=== PATIENT | male | born 1955 | race Two or more races ===

== ENCOUNTER 2020-09-17 10:21 | Inpatient (IN) | payer MEDICAID, MEDICARE ==
[~2020-09-17] VITALS: Ht 175.3 cm; Wt 88.6 kg
[2020-09-17] MEDS ORDERED: ACETAMINOPHEN 325MG TABLET PO STA (10:56)
[2020-09-17] MEDS ORDERED: ASPIRIN 81MG TABLET PO ONE (11:00)
[2020-09-17 11:10] LABS: BASOPHILS % 0.6 % (0.0-2.0); HEMATOCRIT. 37.9 % (42.0-52.0); HEMOGLOBIN. 12.9 g/dL (14.0-18.0); LYMPHOCYTES % 16.7 % (20.0-50.0); MEAN CORPUSCULAR HEMOGLOBIN 32.7 pg (28.0-32.0); MEAN CORPUSCULAR VOLUME 96.1 fL (80.0-94.0); MEAN PLATELET VOLUME 7.5 fl (7.4-10.4); MONOCYTES % 5.8 % (2.0-8.0); NEUTROPHILS % 75.9 % (40.0-76.0); PLATELET 287 x1000/uL (130-400); RED BLOOD CELL COUNT 3.95 mill/uL (4.7-6.1); RED CELL DISTRIBUTION WIDTH 12.7 % (11.6-14.6)
[2020-09-17 11:16] LABS: CHLORIDE 106 mEq/L (98-107)
[2020-09-17] MEDS: NITROGLYCERIN 0.4MG TABLET SL SL PRN ×2 (11:20→19:44)
[2020-09-17] MEDS ORDERED: SODIUM CHLORIDE 0.9% 500 ML IV ONE ×2 (11:45→12:45)
[2020-09-17] MEDS ORDERED: FUROSEMIDE 20MG/2ML VIAL IVP ONE (12:00)
[2020-09-17] MEDS ORDERED: MORPHINE SULFATE 4 MG/ML CPJ (NOT FOR IM USE) IV ONE (12:30)
[2020-09-17 15:44] VITALS: BP 163/94
[2020-09-17 16:00] VITALS: BP 163/84
[2020-09-17 18:00] VITALS: BP 163/99
[2020-09-17] MEDS ORDERED: ACETAMINOPHEN 325MG TABLET PO PRN (18:15)
[2020-09-17] MEDS ORDERED: DEXTROSE 50% WATER 50ML SYRINGE IV PRN (18:15)
[2020-09-17] MEDS ORDERED: ONDANSETRON HCL 4MG/2ML INJ IV PRN (18:15)
[2020-09-17] MEDS: FUROSEMIDE 40MG/4ML VIAL IVP SCH (19:03)
[2020-09-17 19:06] LABS: METHADONE URINE SCREEN NEGATIVE (NEGATIVE); OPIATES URINE SCREEN NEGATIVE (NEGATIVE); PHENCYCLIDINE URINE SCREEN NEGATIVE (NEGATIVE)
[2020-09-17 19:07] LABS: *AMPHETAMINES SCREEN URINE NEGATIVE (NEGATIVE); *BARBITURATES SCREEN URINE NEGATIVE (NEGATIVE); *BENZODIAZEPINES SCREEN URINE NEGATIVE (NEGATIVE); *COCAINE SCREEN URINE NEGATIVE (NEGATIVE); CANNABINOID URINE SCREEN NEGATIVE (NEGATIVE)
[2020-09-17 20:00] VITALS: BP 154/92
[2020-09-17] MEDS ORDERED: METOPROLOL TARTRATE 50MG TABLET PO SCH (21:00)
[2020-09-17] MEDS: INSULIN LISPRO 100 UNITS/ML SUBCUT SCH (21:15)
[2020-09-17] MEDS: ENOXAPARIN 40MG/0.4ML SYR SUBCUT SCH (21:17)
[2020-09-17] MEDS: BLOOD SUGAR DIAGNOSTIC STRIP TEST SCH (21:17)
[2020-09-17 22:00] VITALS: BP 144/88
[2020-09-18] VITALS (19 sets, daily range): BP systolic 134–158; BP diastolic 84–98
[2020-09-18] MEDS: BLOOD SUGAR DIAGNOSTIC STRIP TEST SCH ×4 (06:26→21:00)
[2020-09-18 07:12] LABS: CHLORIDE 100 mEq/L (98-107)
[2020-09-18] MEDS: INSULIN LISPRO 100 UNITS/ML SUBCUT SCH ×4 (07:20→22:14)
[2020-09-18] MEDS: FUROSEMIDE 40MG/4ML VIAL IVP SCH (07:58)
[2020-09-18] MEDS: ASPIRIN 81MG TABLET PO SCH (09:00)
[2020-09-18] MEDS ORDERED: MIDAZOLAM HCL 5 MG/5 ML VIAL ONE (15:11)
[2020-09-18] MEDS ORDERED: FENTANYL CITRATE/PF 50MCG/ML 5ML VIAL ONE (15:11)
[2020-09-18] MEDS ORDERED: IODIXANOL 320MG/ML 100 ML BOTTLE IV ONE (15:12)
[2020-09-18] MEDS ORDERED: LIDOCAINE HCL 1% 20ML VIAL (Pyxis) INJ ONE (15:12)
[2020-09-18] MEDS ORDERED: NITROGLYCERIN 50MCG/ML 10ML VIAL (CATH LAB) IV ONE (16:00)
[2020-09-18] MEDS ORDERED: NICARDIPINE 100MCG/ML 10ML VIAL (CATH LAB) IV ONE (16:00)
[2020-09-18] MEDS ORDERED: HEPARIN SODIUM 1,000 UNIT/1ML VIAL IV ONE (16:00)
[2020-09-18] MEDS ORDERED: ATROPINE SULFATE 1MG/10ML SYR IV PRN (16:00)
[2020-09-18] MEDS ORDERED: ACETAMINOPHEN 325MG TABLET PO PRN ×2 (16:00→18:30)
[2020-09-18] MEDS ORDERED: NITROGLYCERIN 0.4MG TABLET SL SL PRN (18:30)
[2020-09-18] MEDS ORDERED: ALPRAZOLAM 0.25 MG TABLET PO PRN (18:30)
[2020-09-18] MEDS: INSULIN GLARGINE UD 100 UNITS/ML SYR SUBCUT SCH (22:15)
[2020-09-18] MEDS: ATORVASTATIN CALCIUM 40MG TABLET PO SCH (22:16)
[2020-09-18] MEDS: CARVEDILOL 6.25 MG TABLET PO SCH (22:17)
[2020-09-18] MEDS: SODIUM CHLORIDE 0.9% INJ 3ML FLUSH IVF SCH (22:18)
[2020-09-18] MEDS: ENOXAPARIN 40MG/0.4ML SYR SUBCUT SCH (23:22)
[2020-09-19] VITALS (15 sets, daily range): BP systolic 117–163; BP diastolic 75–92
[2020-09-19] MEDS: SODIUM CHLORIDE 0.9% INJ 3ML FLUSH IVF SCH ×2 (06:00→14:00)
[2020-09-19] MEDS: BLOOD SUGAR DIAGNOSTIC STRIP TEST SCH ×4 (06:22→20:22)
[2020-09-19] MEDS: INSULIN LISPRO 100 UNITS/ML SUBCUT SCH ×4 (06:22→20:32)
[2020-09-19] MEDS: ASPIRIN 81MG TABLET PO SCH (08:16)
[2020-09-19] MEDS: FUROSEMIDE 40MG/4ML VIAL IVP SCH (08:16)
[2020-09-19] MEDS: CARVEDILOL 6.25 MG TABLET PO SCH ×2 (08:17→20:38)
[2020-09-19] MEDS ORDERED: LISINOPRIL 5MG TABLET PO SCH (09:00)
[2020-09-19] MEDS: INSULIN GLARGINE UD 100 UNITS/ML SYR SUBCUT SCH (11:41)
[2020-09-19] MEDS: ALLOPURINOL 300 MG TABLET PO SCH (20:37)
[2020-09-19] MEDS: ATORVASTATIN CALCIUM 40MG TABLET PO SCH (20:37)
[2020-09-19] MEDS ORDERED: BISACODYL 10MG SUPP PR PRN (21:00)
[2020-09-19] MEDS ORDERED: DOCUSATE SODIUM 100MG CAPSULE PO SCH (21:00)
[2020-09-19] MEDS ORDERED: CHLORHEXIDINE GLUCONATE 4% EXTERNAL USE TOP SCH (21:00)
[2020-09-19] MEDS ORDERED: ASCORBIC ACID 500 MG TABLET PO SCH (21:00)
[2020-09-19] MEDS ORDERED: INSULIN GLARGINE UD 100 UNITS/ML SYR SUBCUT SCH (22:00)
[2020-09-20] VITALS (20 sets, daily range): BP systolic 107–150; BP diastolic 50–92
[2020-09-20] MEDS: SODIUM CHLORIDE 0.9% INJ 3ML FLUSH IVF SCH ×2 (00:08→14:00)
[2020-09-20] MEDS ORDERED: BLOOD SUGAR DIAGNOSTIC STRIP TEST NR (05:00)
[2020-09-20] MEDS ORDERED: CEFAZOLIN 2,000 MG in DEXT 5% WATER 100 ML IV ONE (05:00)
[2020-09-20] MEDS: ALLOPURINOL 300 MG TABLET PO SCH (05:23)
[2020-09-20] MEDS ORDERED: METHYLENE BLUE 50 MG/10 ML AMP IV ONE (05:45)
[2020-09-20] MEDS ORDERED: BACITRACIN 50,000 UNITS/VIAL ONE (05:46)
[2020-09-20] MEDS ORDERED: THROMBIN (BOVINE) 5000 UNITS/VIAL TOP ONE (05:46)
[2020-09-20] MEDS ORDERED: BACITRACIN 15GM TUBE TOP ONE (05:46)
[2020-09-20] MEDS ORDERED: HEPARIN 5000 UNITS/ML VIAL ONE (05:46)
[2020-09-20] MEDS ORDERED: PAPAVERINE HCL 30 MG/ML 2ML IV ONE (05:47)
[2020-09-20] MEDS ORDERED: DOPAMINE 400MG/250ML PREMIX 250 ML IV ONE (05:51)
[2020-09-20] MEDS ORDERED: HEPARIN 1000 UNITS/ML 10ML ONE ×2 (05:56→11:00)
[2020-09-20] MEDS ORDERED: NOREPINEPHRINE 8 MG in DEXT 5% WATER 242 ML IV SCH (06:00)
[2020-09-20] MEDS ORDERED: CEFAZOLIN 2,000 MG in DEXT 5% WATER 100 ML IV SCH (06:00)
[2020-09-20] MEDS ORDERED: DEL NIDO ELECTROLYTE-S(PH 7.4) 1,000 ML IV SCH ×2 (06:00)
[2020-09-20] MEDS ORDERED: PAPAVERINE HCL 180MG in SODIUM CHLORIDE 0.9% 24ML IV SCH (06:00)
[2020-09-20] MEDS ORDERED: NICARDIPINE 50 MG in NS 250 ML IV SCH (06:00)
[2020-09-20] MEDS ORDERED: INSULIN REGULAR (DRIP) 100 UNITS in SODIUM CHLORIDE 0.9% 99 ML IV SCH (06:00)
[2020-09-20] MEDS ORDERED: AMINOCAPROIC ACID 5,000 MG in SODIUM CHLORIDE 0.9% 230 ML IV SCH (06:00)
[2020-09-20] MEDS ORDERED: EPINEPHRINE 5 MG in DEXT 5% WATER 245 ML IV SCH (06:00)
[2020-09-20 06:22] LABS: BASOPHILS % 0.5 % (0.0-2.0); EOSINOPHILS % 2.2 % (0.0-5.0); HEMATOCRIT. 38.4 % (42.0-52.0); HEMOGLOBIN. 13.2 g/dL (14.0-18.0); LYMPHOCYTES % 20.2 % (20.0-50.0); MEAN CORPUSCULAR HEMOGLOBIN 32.9 pg (28.0-32.0); MEAN CORPUSCULAR VOLUME 95.4 fL (80.0-94.0); MEAN PLATELET VOLUME 7.9 fl (7.4-10.4); MONOCYTES % 10.3 % (2.0-8.0); NEUTROPHILS % 66.8 % (40.0-76.0); PLATELET 271 x1000/uL (130-400); RED BLOOD CELL COUNT 4.02 mill/uL (4.7-6.1); RED CELL DISTRIBUTION WIDTH 12.8 % (11.6-14.6)
[2020-09-20 06:26] LABS: CLARITY URINE CLEAR (CLEAR); COLOR URINE YELLOW (YELLOW); KETONES URINE NEGATIVE (NEGATIVE); LEUKOCYTE ESTERASE URINE NEGATIVE (NEGATIVE); NITRITE URINE NEGATIVE (NEGATIVE); OCCULT BLOOD URINE NEGATIVE (NEGATIVE); PH URINE 5.5 (4.5-8.0); PROTEIN URINE 2+ (NEGATIVE); SPECIFIC GRAVITY URINE 1.019 (1.005-1.030); UROBILINOGEN URINE 0.2 E.U./dL (0.2-1.0)
[2020-09-20 06:28] LABS: CHLORIDE 101 mEq/L (98-107)
[2020-09-20] MEDS ORDERED: ACETAMINOPHEN 500MG TABLET ONE (06:38)
[2020-09-20] MEDS ORDERED: DEXAMETHASONE 4MG/ML 1ML VIAL ONE (06:42)
[2020-09-20] MEDS ORDERED: ROCURONIUM BROMIDE 10MG/ML VIAL 5ML IV ONE ×2 (06:42→09:08)
[2020-09-20] MEDS ORDERED: PROPOFOL 200MG/20ML VIAL IV ONE (06:42)
[2020-09-20] MEDS ORDERED: MIDAZOLAM HCL 5 MG/ML VIAL ONE (06:55)
[2020-09-20] MEDS ORDERED: HYDROMORPHONE HCL/PF 2MG/ML (OR) ONE ×2 (06:55→08:26)
[2020-09-20] MEDS ORDERED: SKIN ADHESIVE 0.7 GM EA TOP ONE (07:39)
[2020-09-20] MEDS ORDERED: CEFAZOLIN SODIUM 1000MG/VIAL ONE (07:50)
[2020-09-20] MEDS ORDERED: POTASSIUM CHLORIDE 40MEQ/20ML INJ IV ONE ×2 (08:25→11:00)
[2020-09-20] MEDS ORDERED: CHLORHEXIDINE GLUCONATE 4% EXTERNAL USE TOP SCH (09:00)
[2020-09-20] MEDS ORDERED: SODIUM BICARBONATE 8.4% 1 MEQ/ML 50ML SYR IV ONE ×2 (09:33→11:00)
[2020-09-20] MEDS ORDERED: PROTAMINE SULFATE 10MG/ML VIAL 25ML IV ONE (10:56)
[2020-09-20] MEDS ORDERED: AMINOCAPROIC ACID 250 MG/ML 20ML VIAL ONE ×2 (10:57→11:00)
[2020-09-20] MEDS ORDERED: CALCIUM CHLORIDE 1GM/10ML SYR IV ONE ×2 (10:57→11:00)
[2020-09-20] MEDS ORDERED: MANNITOL 20% (20GM/100ML) BAG 500ML PREMIX IV ONE (11:00)
[2020-09-20] MEDS ORDERED: HEPARIN 10,000 UNITS/ML VIAL ONE (11:00)
[2020-09-20] MEDS ORDERED: ALBUMIN HUMAN 25GM/100ML (25%) IV ONE (11:00)
[2020-09-20] MEDS ORDERED: PHENYLEPHRINE HCL 10 MG/ML 1ML (IV VIAL) IV ONE (11:00)
[2020-09-20] MEDS ORDERED: LIDOCAINE HCL 2% 5ML SYRINGE IV ONE (11:00)
[2020-09-20] MEDS ORDERED: MAGNESIUM SULFATE 5GM/10ML VIAL IV ONE (11:00)
[2020-09-20 12:27] LABS: HEMOGLOBIN. 10.8 g/dL (14.0-18.0); MEAN CORPUSCULAR HEMOGLOBIN 32.8 pg (28.0-32.0); MEAN CORPUSCULAR VOLUME 93.9 fL (80.0-94.0); MEAN PLATELET VOLUME 7.6 fl (7.4-10.4); PLATELET 227 x1000/uL (130-400); RED CELL DISTRIBUTION WIDTH 12.7 % (11.6-14.6)
[2020-09-20 12:34] LABS: CHLORIDE 99 mEq/L (98-107)
[2020-09-20 12:40] LABS: PHOSPHORUS 1.2 mg/dL (2.5-4.9)
[2020-09-20 12:49] LABS: INR 1.2; PARTIAL THROMBOPLASTIN TIME 30.6 sec (23.4-31.0); PROTHROMBIN TIME 12.4 sec (9.6-11.0)
[2020-09-20] MEDS ORDERED: MAGNESIUM 2 G PREMIX 50 ML IV PRN (13:00)
[2020-09-20] MEDS ORDERED: DEXTROSE 50% WATER 50ML SYRINGE IV PRN ×2 (13:00)
[2020-09-20] MEDS: MAGNESIUM HYDROXIDE 400MG/5ML 30ML UDC PO SCH ×3 (13:00→21:00)
[2020-09-20] MEDS ORDERED: ALBUMIN HUMAN 12.5G/250ML (5%) IV PRN (13:00)
[2020-09-20] MEDS ORDERED: KCL 10MEQ/50ML PREMIX 150 ML IV PRN (13:00)
[2020-09-20] MEDS ORDERED: KCL 10MEQ/50ML PREMIX 200 ML IV PRN (13:00)
[2020-09-20] MEDS ORDERED: MAGNESIUM SULFATE 3 GM in DEXT 5% WATER 100 ML IV PRN (13:00)
[2020-09-20] MEDS ORDERED: DOPAMINE 400MG/250ML PREMIX 250 ML IV PRN (13:00)
[2020-09-20] MEDS ORDERED: ACETAMINOPHEN 325MG TABLET PO PRN (13:00)
[2020-09-20] MEDS ORDERED: CEFAZOLIN 1000MG PREMIX 50 ML IV SCH ×2 (13:00→14:14)
[2020-09-20] MEDS ORDERED: MAGNESIUM 1 G PREMIX 100 ML IV PRN (13:00)
[2020-09-20] MEDS ORDERED: NOREPINEPHRINE 8 MG in DEXT 5% WATER 242 ML IV PRN (13:00)
[2020-09-20 13:35] LABS: BG BASE EXCESS -1.8 mmol/L (-2.0-2.0); BG CARBOXYHEMOGLOBIN 0.1 % (0.5-1.5); BG DEOXYHEMOGLOBIN 3.5 % (0.0-5.0); BG FRACTION INSPIRED OXYGEN 100; BG HCO3 ACT 23.8 mmol/L (22.0-26.0); BG METHEMOGLOBIN 0.2 % (0.0-1.5); BG OXYGEN SATURATION 96.5 % (92.0-98.5); BG OXYHEMOGLOBIN 96.2 % (94.0-97.0); BG PCO2 44.1 mmHg (35.0-45.0); BG PO2 98.1 mmHg (75.0-100.0); BG SAMPLE SITE ALINE; BG TOTAL HEMOGLOBIN 10.3 g/dL (12.0-18.0); BG TOTAL RESPIRATORY RATE 13 b/min; BG VENT MODE VENT - AC
[2020-09-20] MEDS: BLOOD SUGAR DIAGNOSTIC STRIP TEST SCH ×10 (14:00→23:00)
[2020-09-20 14:16] LABS: PLATELET ESTIMATE NORMAL
[2020-09-20 14:30] LABS: BG BASE EXCESS -2.1 mmol/L (-2.0-2.0); BG CARBOXYHEMOGLOBIN 0.3 % (0.5-1.5); BG FRACTION INSPIRED OXYGEN 100; BG HCO3 ACT 23.1 mmol/L (22.0-26.0); BG METHEMOGLOBIN 0.1 % (0.0-1.5); BG OXYHEMOGLOBIN 97.6 % (94.0-97.0); BG PCO2 41.3 mmHg (35.0-45.0); BG PH 7.365 (7.350-7.450); BG PO2 144.5 mmHg (75.0-100.0); BG SAMPLE SITE ALINE; BG TOTAL HEMOGLOBIN 10.2 g/dL (12.0-18.0); BG TOTAL RESPIRATORY RATE 16 b/min; BG VENT MODE VENT - AC
[2020-09-20] MEDS ORDERED: PROTAMINE SULFATE 10MG/ML VIAL 25ML IV NR (15:00)
[2020-09-20] MEDS ORDERED: ALBUMIN HUMAN 12.5G/250ML (5%) IV ONE (15:00)
[2020-09-20] MEDS ORDERED: CEFAZOLIN 1000MG/50ML PREMIX IV ONE (15:00)
[2020-09-20] MEDS ORDERED: ALBUMIN HUMAN 12.5G/250ML (5%) IV NR (15:15)
[2020-09-20] MEDS: DEXT 5%/0.45% NACL 1000ML 1,000 ML IV SCH (15:36)
[2020-09-20] MEDS: CEFAZOLIN 1000MG PREMIX 50 ML IV SCH ×2 (15:39→23:52)
[2020-09-20 15:51] LABS: BG BASE EXCESS -2.9 mmol/L (-2.0-2.0); BG CARBOXYHEMOGLOBIN 0.3 % (0.5-1.5); BG DEOXYHEMOGLOBIN 1.6 % (0.0-5.0); BG FRACTION INSPIRED OXYGEN 80; BG HCO3 ACT 22.1 mmol/L (22.0-26.0); BG METHEMOGLOBIN 0.3 % (0.0-1.5); BG OXYGEN SATURATION 98.4 % (92.0-98.5); BG OXYHEMOGLOBIN 97.8 % (94.0-97.0); BG PCO2 39.1 mmHg (35.0-45.0); BG PO2 190.5 mmHg (75.0-100.0); BG SAMPLE SITE ALINE; BG TOTAL HEMOGLOBIN 9.3 g/dL (12.0-18.0); BG TOTAL RESPIRATORY RATE 15 b/min; BG VENT MODE VENT - AC
[2020-09-20] MEDS: DOCUSATE SODIUM 100MG CAPSULE PO SCH (17:00)
[2020-09-20 18:47] LABS: HEMATOCRIT. 24.5 % (42.0-52.0); HEMOGLOBIN. 8.4 g/dL (14.0-18.0); MEAN CORPUSCULAR HEMOGLOBIN 32.6 pg (28.0-32.0); MEAN CORPUSCULAR VOLUME 95.6 fL (80.0-94.0); MEAN PLATELET VOLUME 7.7 fl (7.4-10.4); PLATELET 178 x1000/uL (130-400); RED BLOOD CELL COUNT 2.56 mill/uL (4.7-6.1); RED CELL DISTRIBUTION WIDTH 12.9 % (11.6-14.6)
[2020-09-20 18:58] LABS: BG CARBOXYHEMOGLOBIN 0.3 % (0.5-1.5); BG DEOXYHEMOGLOBIN 3.1 % (0.0-5.0); BG FRACTION INSPIRED OXYGEN 50; BG HCO3 ACT 24.5 mmol/L (22.0-26.0); BG METHEMOGLOBIN 0.3 % (0.0-1.5); BG OXYGEN SATURATION 96.9 % (92.0-98.5); BG OXYHEMOGLOBIN 96.3 % (94.0-97.0); BG PCO2 39.2 mmHg (35.0-45.0); BG PH 7.413 (7.350-7.450); BG PO2 96.3 mmHg (75.0-100.0); BG SAMPLE SITE ALINE; BG TOTAL HEMOGLOBIN 11.2 g/dL (12.0-18.0); BG TOTAL RESPIRATORY RATE 17 b/min; BG VENT MODE VENT - AC
[2020-09-20 19:17] LABS: PLATELET ESTIMATE NORMAL
[2020-09-20] MEDS: MORPHINE SULFATE 2 MG/ML CPJ (NOT FOR IM USE) IV PRN ×2 (19:25→23:25)
[2020-09-20] MEDS: IPRATROPIUM/ALBUTEROL 0.5-3(2.5)MG/3ML NEB HHN SCH (20:02)
[2020-09-20 20:42] LABS: BG BASE EXCESS -1.9 mmol/L (-2.0-2.0); BG CARBOXYHEMOGLOBIN 0.1 % (0.5-1.5); BG DEOXYHEMOGLOBIN 3.9 % (0.0-5.0); BG FRACTION INSPIRED OXYGEN 40; BG HCO3 ACT 22.6 mmol/L (22.0-26.0); BG METHEMOGLOBIN 0.2 % (0.0-1.5); BG OXYGEN SATURATION 96.1 % (92.0-98.5); BG OXYHEMOGLOBIN 95.8 % (94.0-97.0); BG PCO2 37.3 mmHg (35.0-45.0); BG PO2 88.3 mmHg (75.0-100.0); BG SAMPLE SITE ALINE; BG TOTAL HEMOGLOBIN 8.9 g/dL (12.0-18.0); BG VENT MODE VENT - AC
[2020-09-20 21:51] LABS: BG BASE EXCESS -0.1 mmol/L (-2.0-2.0); BG CARBOXYHEMOGLOBIN 0.3 % (0.5-1.5); BG DEOXYHEMOGLOBIN 4.8 % (0.0-5.0); BG FRACTION INSPIRED OXYGEN 40; BG METHEMOGLOBIN 0.1 % (0.0-1.5); BG OXYGEN SATURATION 95.2 % (92.0-98.5); BG OXYHEMOGLOBIN 94.8 % (94.0-97.0); BG PCO2 36.6 mmHg (35.0-45.0); BG PH 7.434 (7.350-7.450); BG PO2 77.2 mmHg (75.0-100.0); BG SAMPLE SITE ALINE; BG TOTAL HEMOGLOBIN 9.7 g/dL (12.0-18.0); BG VENT MODE VENT - CPAP
[2020-09-21] MEDS: OXYCODONE HCL/ACETAMINOPHEN 5/325MG TABLET PO PRN ×3 (00:31→12:47)
[2020-09-21] MEDS: IPRATROPIUM/ALBUTEROL 0.5-3(2.5)MG/3ML NEB HHN SCH ×6 (00:50→20:37)
[2020-09-21] MEDS: MAGNESIUM HYDROXIDE 400MG/5ML 30ML UDC PO SCH ×4 (01:00→12:47)
[2020-09-21] MEDS: BLOOD SUGAR DIAGNOSTIC STRIP TEST SCH ×21 (02:00→23:00)
[2020-09-21] MEDS: MORPHINE SULFATE 2 MG/ML CPJ (NOT FOR IM USE) IV PRN ×2 (03:19→20:44)
[2020-09-21 05:55] LABS: HEMATOCRIT. 28.6 % (42.0-52.0); HEMOGLOBIN. 9.9 g/dL (14.0-18.0); MEAN CORPUSCULAR HEMOGLOBIN 31.9 pg (28.0-32.0); MEAN CORPUSCULAR VOLUME 91.9 fL (80.0-94.0); MEAN PLATELET VOLUME 7.7 fl (7.4-10.4); PLATELET 152 x1000/uL (130-400); RED BLOOD CELL COUNT 3.12 mill/uL (4.7-6.1); RED CELL DISTRIBUTION WIDTH 14.7 % (11.6-14.6)
[2020-09-21 06:05] LABS: CHLORIDE 113 mEq/L (98-107)
[2020-09-21 06:09] LABS: PHOSPHORUS 4.8 mg/dL (2.5-4.9)
[2020-09-21] MEDS: DEXT 5%/0.45% NACL 1000ML 1,000 ML IV SCH (06:12)
[2020-09-21] MEDS: CEFAZOLIN 1000MG PREMIX 50 ML IV SCH ×2 (06:23→15:21)
[2020-09-21] MEDS: FAMOTIDINE 20MG/2ML VIAL IV SCH (09:52)
[2020-09-21] MEDS: DOCUSATE SODIUM 100MG CAPSULE PO SCH ×2 (09:52→17:29)
[2020-09-21] MEDS: KCL 10MEQ/50ML PREMIX 100 ML IV PRN (09:53)
[2020-09-21] MEDS: METOPROLOL TARTRATE 25MG TABLET PO SCH ×2 (10:54→21:33)
[2020-09-21 11:11] LABS: BG BASE EXCESS -1.9 mmol/L (-2.0-2.0); BG CARBOXYHEMOGLOBIN 0.3 % (0.5-1.5); BG DEOXYHEMOGLOBIN 5.1 % (0.0-5.0); BG FRACTION INSPIRED OXYGEN 40; BG HCO3 ACT 22.3 mmol/L (22.0-26.0); BG METHEMOGLOBIN 0.3 % (0.0-1.5); BG OXYGEN SATURATION 94.9 % (92.0-98.5); BG OXYHEMOGLOBIN 94.3 % (94.0-97.0); BG PCO2 35.9 mmHg (35.0-45.0); BG PH 7.412 (7.350-7.450); BG PO2 75.5 mmHg (75.0-100.0); BG SAMPLE SITE ALINE; BG TOTAL HEMOGLOBIN 10.3 g/dL (12.0-18.0); BG VENT MODE COOL AEROSOL
[2020-09-21] MEDS ORDERED: KETOROLAC 15MG/ML VIAL IV NR (13:00)
[2020-09-21 13:21] LABS: PLATELET ESTIMATE NORMAL
[2020-09-21] MEDS: SODIUM CHLORIDE 0.9% INJ 3ML FLUSH IVF SCH ×2 (14:00→22:00)
[2020-09-21] MEDS: INSULIN REGULAR (DRIP) 100 UNITS in SODIUM CHLORIDE 0.9% 100 ML IV SCH (15:00)
[2020-09-21] MEDS: ASPIRIN 81MG TABLET PO SCH (15:21)
[2020-09-21 20:00] VITALS: BP 142/83
[2020-09-21 21:00] VITALS: BP 143/82
[2020-09-21 21:13] LABS: CHLORIDE 107 mEq/L (98-107)
[2020-09-21] MEDS: ATORVASTATIN CALCIUM 20MG TABLET PO SCH (21:33)
[2020-09-21 22:00] VITALS: BP 152/92
[2020-09-21 23:00] VITALS: BP 137/72
[2020-09-21] MEDS ORDERED: FUROSEMIDE 40MG/4ML VIAL IVP SCH (23:00)
[2020-09-22] VITALS (27 sets, daily range): BP systolic 119–165; BP diastolic 68–106
[2020-09-22] MEDS: CEFAZOLIN 1000MG PREMIX 50 ML IV SCH ×4 (00:08→23:13)
[2020-09-22] MEDS: DEXT 5%/0.45% NACL 1000ML 1,000 ML IV SCH ×2 (00:23→14:37)
[2020-09-22] MEDS: IPRATROPIUM/ALBUTEROL 0.5-3(2.5)MG/3ML NEB HHN SCH ×6 (00:50→21:04)
[2020-09-22] MEDS: BLOOD SUGAR DIAGNOSTIC STRIP TEST SCH ×21 (02:00→23:00)
[2020-09-22] MEDS: OXYCODONE HCL/ACETAMINOPHEN 5/325MG TABLET PO PRN ×5 (03:45→22:17)
[2020-09-22 06:17] LABS: BASOPHILS % 0.4 % (0.0-2.0); EOSINOPHILS % 0.3 % (0.0-5.0); HEMATOCRIT. 27.3 % (42.0-52.0); HEMOGLOBIN. 9.3 g/dL (14.0-18.0); LYMPHOCYTES % 10.7 % (20.0-50.0); MEAN CORPUSCULAR VOLUME 93.9 fL (80.0-94.0); MEAN PLATELET VOLUME 7.6 fl (7.4-10.4); MONOCYTES % 12.5 % (2.0-8.0); NEUTROPHILS % 76.1 % (40.0-76.0); PLATELET 143 x1000/uL (130-400); RED BLOOD CELL COUNT 2.91 mill/uL (4.7-6.1); RED CELL DISTRIBUTION WIDTH 14.8 % (11.6-14.6)
[2020-09-22 06:22] LABS: CHLORIDE 106 mEq/L (98-107)
[2020-09-22 06:29] LABS: PHOSPHORUS 3.4 mg/dL (2.5-4.9)
[2020-09-22] MEDS: SODIUM CHLORIDE 0.9% INJ 3ML FLUSH IVF SCH ×3 (06:32→22:23)
[2020-09-22] MEDS: DOCUSATE SODIUM 100MG CAPSULE PO SCH ×2 (08:33→17:31)
[2020-09-22] MEDS: ASPIRIN 81MG TABLET PO SCH (08:33)
[2020-09-22] MEDS: FAMOTIDINE 20MG/2ML VIAL IV SCH (08:33)
[2020-09-22] MEDS: METOPROLOL TARTRATE 25MG TABLET PO SCH ×2 (08:33→20:53)
[2020-09-22] MEDS: LISINOPRIL 5MG TABLET PO SCH (08:33)
[2020-09-22] MEDS: ONDANSETRON HCL 4MG/2ML INJ IV PRN ×4 (09:03→23:39)
[2020-09-22] MEDS: KCL 10MEQ/50ML PREMIX 100 ML IV PRN (11:26)
[2020-09-22] MEDS: MORPHINE SULFATE 2 MG/ML CPJ (NOT FOR IM USE) IV PRN ×2 (14:36→23:26)
[2020-09-22] MEDS ORDERED: FUROSEMIDE 40MG/4ML VIAL IVP NR (18:30)
[2020-09-22] MEDS: MAGNESIUM HYDROXIDE 400MG/5ML 30ML UDC PO PRN (18:48)
[2020-09-22] MEDS: ATORVASTATIN CALCIUM 20MG TABLET PO SCH (20:52)
[2020-09-22] MEDS: INSULIN REGULAR (DRIP) 100 UNITS in SODIUM CHLORIDE 0.9% 100 ML IV SCH (21:19)
[2020-09-22] MEDS: CLONIDINE 0.1MG TABLET PO PRN (22:16)
[2020-09-23] VITALS (24 sets, daily range): BP systolic 123–159; BP diastolic 71–97
[2020-09-23] MEDS: IPRATROPIUM/ALBUTEROL 0.5-3(2.5)MG/3ML NEB HHN SCH ×6 (00:01→20:51)
[2020-09-23] MEDS: BLOOD SUGAR DIAGNOSTIC STRIP TEST SCH ×11 (00:02→21:31)
[2020-09-23 05:47] LABS: BASOPHILS % 0.3 % (0.0-2.0); EOSINOPHILS % 1.3 % (0.0-5.0); HEMATOCRIT. 26.1 % (42.0-52.0); HEMOGLOBIN. 8.9 g/dL (14.0-18.0); LYMPHOCYTES % 14.6 % (20.0-50.0); MEAN CORPUSCULAR HEMOGLOBIN 32.2 pg (28.0-32.0); MEAN CORPUSCULAR VOLUME 94.1 fL (80.0-94.0); MEAN PLATELET VOLUME 8.1 fl (7.4-10.4); MONOCYTES % 9.9 % (2.0-8.0); NEUTROPHILS % 73.9 % (40.0-76.0); PLATELET 146 x1000/uL (130-400); RED BLOOD CELL COUNT 2.77 mill/uL (4.7-6.1); RED CELL DISTRIBUTION WIDTH 14.4 % (11.6-14.6)
[2020-09-23 06:03] LABS: CHLORIDE 101 mEq/L (98-107)
[2020-09-23 06:15] LABS: PHOSPHORUS 3.1 mg/dL (2.5-4.9)
[2020-09-23] MEDS: SODIUM CHLORIDE 0.9% INJ 3ML FLUSH IVF SCH ×3 (06:44→21:30)
[2020-09-23] MEDS: CEFAZOLIN 1000MG PREMIX 50 ML IV SCH ×3 (06:48→23:43)
[2020-09-23] MEDS: DEXT 5%/0.45% NACL 1000ML 1,000 ML IV SCH (07:12)
[2020-09-23] MEDS ORDERED: EPOETIN ALFA 10000UNITS/ML VIAL SUBCUT SCH (08:30)
[2020-09-23] MEDS ORDERED: EPOETIN ALFA-EPBX 10,000 UNIT/ML VIAL SUBCUT SCH (08:30)
[2020-09-23] MEDS: ASPIRIN 81MG TABLET PO SCH (09:24)
[2020-09-23] MEDS: METOPROLOL TARTRATE 25MG TABLET PO SCH ×2 (09:25→21:30)
[2020-09-23] MEDS: LISINOPRIL 5MG TABLET PO SCH (09:25)
[2020-09-23] MEDS: DOCUSATE SODIUM 100MG CAPSULE PO SCH ×2 (09:25→16:49)
[2020-09-23] MEDS: FAMOTIDINE 20MG/2ML VIAL IV SCH (09:26)
[2020-09-23] MEDS ORDERED: DEXTROSE 50% WATER 50ML SYRINGE IV PRN (09:45)
[2020-09-23] MEDS: IRON SUCROSE COMPLEX 100 MG/5 ML ML IV SCH (10:41)
[2020-09-23] MEDS: INSULIN LISPRO 100 UNITS/ML SUBCUT SCH ×3 (12:08→21:32)
[2020-09-23] MEDS: ONDANSETRON HCL 4MG/2ML INJ IV PRN ×3 (12:14→18:12)
[2020-09-23] MEDS: OXYCODONE HCL/ACETAMINOPHEN 5/325MG TABLET PO PRN ×2 (16:50→17:47)
[2020-09-23] MEDS ORDERED: KETOROLAC 15MG/ML VIAL IV NR (17:00)
[2020-09-23] MEDS: ATORVASTATIN CALCIUM 20MG TABLET PO SCH (21:29)
[2020-09-24] VITALS (14 sets, daily range): BP systolic 2–160; BP diastolic 68–92
[2020-09-24] MEDS: CLONIDINE 0.1MG TABLET PO PRN (00:19)
[2020-09-24] MEDS: IPRATROPIUM/ALBUTEROL 0.5-3(2.5)MG/3ML NEB HHN SCH ×6 (00:21→21:45)
[2020-09-24] MEDS: CEFAZOLIN 1000MG PREMIX 50 ML IV SCH ×3 (06:39→23:30)
[2020-09-24] MEDS: BLOOD SUGAR DIAGNOSTIC STRIP TEST SCH ×4 (06:39→20:16)
[2020-09-24] MEDS: SODIUM CHLORIDE 0.9% INJ 3ML FLUSH IVF SCH ×3 (06:40→23:30)
[2020-09-24 06:42] LABS: BASOPHILS % 0.3 % (0.0-2.0); EOSINOPHILS % 3.3 % (0.0-5.0); HEMATOCRIT. 25.1 % (42.0-52.0); HEMOGLOBIN. 8.7 g/dL (14.0-18.0); LYMPHOCYTES % 16.9 % (20.0-50.0); MEAN CORPUSCULAR HEMOGLOBIN 32.3 pg (28.0-32.0); MEAN CORPUSCULAR VOLUME 93.4 fL (80.0-94.0); MONOCYTES % 11.9 % (2.0-8.0); NEUTROPHILS % 67.6 % (40.0-76.0); PLATELET 175 x1000/uL (130-400); RED BLOOD CELL COUNT 2.68 mill/uL (4.7-6.1); RED CELL DISTRIBUTION WIDTH 14.2 % (11.6-14.6)
[2020-09-24 07:03] LABS: CHLORIDE 101 mEq/L (98-107)
[2020-09-24] MEDS: INSULIN LISPRO 100 UNITS/ML SUBCUT SCH ×4 (07:34→20:30)
[2020-09-24] MEDS: ONDANSETRON HCL 4MG/2ML INJ IV PRN (07:44)
[2020-09-24] MEDS ORDERED: FUROSEMIDE 40MG/4ML VIAL IVP NR (08:00)
[2020-09-24] MEDS: LISINOPRIL 5MG TABLET PO SCH (08:16)
[2020-09-24] MEDS: ASPIRIN 81MG TABLET PO SCH (08:16)
[2020-09-24] MEDS: METOPROLOL TARTRATE 25MG TABLET PO SCH ×2 (08:16→20:15)
[2020-09-24] MEDS: DOCUSATE SODIUM 100MG CAPSULE PO SCH ×2 (08:16→17:34)
[2020-09-24] MEDS: IRON SUCROSE COMPLEX 100 MG/5 ML ML IV SCH (08:17)
[2020-09-24] MEDS: FAMOTIDINE 20MG/2ML VIAL IV SCH (08:17)
[2020-09-24] MEDS: MAGNESIUM HYDROXIDE 400MG/5ML 30ML UDC PO PRN (12:51)
[2020-09-24] MEDS ORDERED: AMIODARONE HCL 900 MG in DEXT 5% WATER 482 ML IV SCH (19:30)
[2020-09-24] MEDS ORDERED: AMIODARONE HCL 150 MG in DEXT 5% WATER 100 ML IV NR (19:30)
[2020-09-24] MEDS: ATORVASTATIN CALCIUM 20MG TABLET PO SCH (20:14)
[2020-09-24] MEDS: OXYCODONE HCL/ACETAMINOPHEN 5/325MG TABLET PO PRN (20:15)
[2020-09-25] VITALS (13 sets, daily range): BP systolic 125–161; BP diastolic 76–93
[2020-09-25] MEDS: IPRATROPIUM/ALBUTEROL 0.5-3(2.5)MG/3ML NEB HHN SCH ×6 (01:00→21:55)
[2020-09-25] MEDS: BLOOD SUGAR DIAGNOSTIC STRIP TEST SCH ×4 (06:50→20:22)
[2020-09-25] MEDS: ASPIRIN 81MG TABLET PO SCH (08:16)
[2020-09-25] MEDS: DOCUSATE SODIUM 100MG CAPSULE PO SCH ×2 (08:17→18:03)
[2020-09-25] MEDS: LISINOPRIL 5MG TABLET PO SCH (08:17)
[2020-09-25] MEDS: CEFAZOLIN 1000MG PREMIX 50 ML IV SCH ×2 (08:18→15:33)
[2020-09-25] MEDS: FAMOTIDINE 20MG/2ML VIAL IV SCH (09:29)
[2020-09-25] MEDS: METOPROLOL TARTRATE 25MG TABLET PO SCH ×2 (09:30→20:21)
[2020-09-25] MEDS: IRON SUCROSE COMPLEX 100 MG/5 ML ML IV SCH (09:30)
[2020-09-25] MEDS: INSULIN LISPRO 100 UNITS/ML SUBCUT SCH ×4 (09:33→20:40)
[2020-09-25] MEDS: SODIUM CHLORIDE 0.9% INJ 3ML FLUSH IVF SCH ×2 (15:33→21:40)
[2020-09-25] MEDS: ATORVASTATIN CALCIUM 20MG TABLET PO SCH (20:22)
[2020-09-26] VITALS (11 sets, daily range): BP systolic 128–150; BP diastolic 33–89
[2020-09-26] MEDS: MAGNESIUM HYDROXIDE 400MG/5ML 30ML UDC PO PRN (01:32)
[2020-09-26] MEDS: IPRATROPIUM/ALBUTEROL 0.5-3(2.5)MG/3ML NEB HHN SCH ×4 (02:27→12:13)
[2020-09-26] MEDS: SODIUM CHLORIDE 0.9% INJ 3ML FLUSH IVF SCH ×2 (06:06→14:00)
[2020-09-26] MEDS: BLOOD SUGAR DIAGNOSTIC STRIP TEST SCH ×2 (06:06→11:13)
[2020-09-26] MEDS ORDERED: METOPROLOL TARTRATE 50MG TABLET PO SCH ×2 (09:00→21:00)
[2020-09-26] MEDS: INSULIN LISPRO 100 UNITS/ML SUBCUT SCH ×2 (09:02→12:25)
[2020-09-26] MEDS: FAMOTIDINE 20MG/2ML VIAL IV SCH (09:03)
[2020-09-26] MEDS: ASPIRIN 81MG TABLET PO SCH (09:03)
[2020-09-26] MEDS: IRON SUCROSE COMPLEX 100 MG/5 ML ML IV SCH (09:03)
[2020-09-26] MEDS: DOCUSATE SODIUM 100MG CAPSULE PO SCH (09:03)
[2020-09-26] MEDS: LISINOPRIL 5MG TABLET PO SCH (09:04)
[2020-09-26] MEDS ORDERED: POLYETHYLENE GLYCOL 3350 (17GM) 1 DOSE PACK PO SCH (09:45)
[2020-09-26] MEDS ORDERED: ATOR20TA PO (15:25)
[2020-09-26] MEDS ORDERED: HYDR-4001 MT (15:25)
[2020-09-26] MEDS ORDERED: ASPI-1160 PO (15:25)
[2020-09-26] MEDS ORDERED: TOPUD PO (15:25)
[2020-09-26] MEDS ORDERED: METF-416 MT (15:25)
[2020-09-26] MEDS ORDERED: LISI-186 PO (15:25)
[2020-09-26] MEDS ORDERED: METO-539 PO (15:25)
== END 2020-09-26 16:47 | disposition home health service (06) | DRG 233 ==
LOC: ER 10:21 → 3WST 13:39 → ENRESERV 14:39 → CVICU 09-20 06:25 → 3WST 09-23 11:17
PROVIDERS: ADMIT Internal Medicine; ATTEND Internal Medicine
PROC: 4A023N7 Measurement of Cardiac Sampling and Pressure, Left Heart, Percutaneous Approach (ICD-10-PCS; principal; 2020-09-18)
PROC: B2111ZZ Fluoroscopy of Multiple Coronary Arteries using Low Osmolar Contrast (ICD-10-PCS; 2020-09-18)
PROC: B2151ZZ Fluoroscopy of Left Heart using Low Osmolar Contrast (ICD-10-PCS; 2020-09-18)
PROC: 02110AW Bypass Coronary Artery, Two Arteries from Aorta with Autologous Arterial Tissue, Open Approach (ICD-10-PCS; 2020-09-20)
PROC: 03B10ZZ Excision of Left Internal Mammary Artery, Open Approach (ICD-10-PCS; 2020-09-20)
PROC: 06BQ4ZZ Excision of Left Saphenous Vein, Percutaneous Endoscopic Approach (ICD-10-PCS; 2020-09-20)
PROC: 0210099 Bypass Coronary Artery, One Artery from Left Internal Mammary with Autologous Venous Tissue, Open Approach (ICD-10-PCS; 2020-09-20)
PROC: B24BZZ4 Ultrasonography of Heart with Aorta, Transesophageal (ICD-10-PCS; 2020-09-20)
PROC: 5A1221Z Performance of Cardiac Output, Continuous (ICD-10-PCS; 2020-09-20)
PROC: 30233N1 Transfusion of Nonautologous Red Blood Cells into Peripheral Vein, Percutaneous Approach (ICD-10-PCS; 2020-09-20)
DX: I25.110 Atherosclerotic heart disease of native coronary artery with unstable angina pectoris (principal); I21.4 Non-ST elevation (NSTEMI) myocardial infarction; I50.43 Acute on chronic combined systolic (congestive) and diastolic (congestive) heart failure; R57.0 Cardiogenic shock; J96.01 Acute respiratory failure with hypoxia; E87.1 Hypo-osmolality and hyponatremia; I47.1 Supraventricular tachycardia; E78.5 Hyperlipidemia, unspecified; D64.9 Anemia, unspecified; I34.0 Nonrheumatic mitral (valve) insufficiency; I25.5 Ischemic cardiomyopathy; I48.91 Unspecified atrial fibrillation; E11.65 Type 2 diabetes mellitus with hyperglycemia; Z20.828 Contact with and (suspected) exposure to other viral communicable diseases; I11.0 Hypertensive heart disease with heart failure; E78.00 Pure hypercholesterolemia, unspecified; E78.1 Pure hyperglyceridemia; R26.9 Unspecified abnormalities of gait and mobility; I25.2 Old myocardial infarction; Z79.1 Long term (current) use of non-steroidal anti-inflammatories (NSAID); Z79.899 Other long term (current) drug therapy; Z79.82 Long term (current) use of aspirin
CPT/HCPCS: 36415; 36600; 71045; 80048; 80053; 80061; 80305; 81003; 82375; 82805; 82962; 83036; 83735; 83880; 84100; 84443; 84484; 85025; 85384; 86850; 86900; 86920; 87070; 87426; 93005; 93306; 93458; 93880; 97110; 97116; 97162; 97166; 97530; 99291; C1729; C1751; C1758; C1769; C1887; C1893; J0282; J0690; J0885; J1100; J1170; J1265; J1644; J1650; J1815; J1885; J1940; J2250; J2270; J2370; J2405; J2440; J2704; J2720; J3010; J3475; J3480; J3490; J7040; J7050; J7060; L3908; P9016; P9041; P9047; Q9967; Q9968

== ENCOUNTER 2020-10-23 12:22 | Emergency (ER) | payer MEDICARE ==
[~2020-10-23] VITALS: Ht 167.6 cm; Wt 80.0 kg
[~2020-10-23 12:22] MED LIST: ASPI-1160 PO; ATOR20TA PO; LISI-186 PO; METF-416 MT; METO-539 PO; TOPUD PO
[2020-10-23] MEDS ORDERED: MORPHINE SULFATE 2 MG/ML CPJ (NOT FOR IM USE) IV ONE (13:15)
[2020-10-23 13:24] LABS: HEMATOCRIT. 34.1 % (42.0-52.0); HEMOGLOBIN. 11.1 g/dL (14.0-18.0); MEAN CORPUSCULAR HEMOGLOBIN 31.8 pg (28.0-32.0); MEAN CORPUSCULAR VOLUME 97.3 fL (80.0-94.0); MEAN PLATELET VOLUME 8.9 fl (7.4-10.4); PLATELET 240 x1000/uL (130-400); RED BLOOD CELL COUNT 3.51 mill/uL (4.7-6.1); RED CELL DISTRIBUTION WIDTH 15.3 % (11.6-14.6)
[2020-10-23 13:28] LABS: CHLORIDE 107 mEq/L (98-107)
[2020-10-23 13:53] LABS: INR 1.1; PARTIAL THROMBOPLASTIN TIME 26.9 sec (23.4-31.0); PROTHROMBIN TIME 11.4 sec (9.6-11.0)
[2020-10-23 14:18] LABS: PLATELET ESTIMATE NORMAL
[2020-10-23] MEDS ORDERED: SODIUM BICARBONATE 8.4% 1 MEQ/ML 50ML SYR IV ONE (14:45)
[2020-10-23 17:54] LABS: CHLORIDE 108 mEq/L (98-107)
[2020-10-23 19:00] VITALS: BP 135/88
[2020-10-23 20:26] LABS: CLARITY URINE CLEAR (CLEAR); COLOR URINE YELLOW (YELLOW); KETONES URINE NEGATIVE (NEGATIVE); LEUKOCYTE ESTERASE URINE NEGATIVE (NEGATIVE); NITRITE URINE NEGATIVE (NEGATIVE); OCCULT BLOOD URINE NEGATIVE (NEGATIVE); PH URINE 6.5 (4.5-8.0); PROTEIN URINE TRACE (NEGATIVE); UROBILINOGEN URINE 0.2 E.U./dL (0.2-1.0)
== END 2020-10-23 19:45 | disposition home or self-care (01) ==
LOC: ER 12:22 → EDBEDREQTM 15:16 → ER 19:45 → CANBEDREQ 23:59
DX: I31.3 Pericardial effusion (noninflammatory) (principal); I25.10 Atherosclerotic heart disease of native coronary artery without angina pectoris; I10 Essential (primary) hypertension; E11.9 Type 2 diabetes mellitus without complications; Z95.1 Presence of aortocoronary bypass graft; Z79.82 Long term (current) use of aspirin
CPT/HCPCS: 36415; 71046; 80048; 80053; 81003; 83605; 83880; 84145; 84484; 85025; 85610; 85730; 87040; 87086; 93005; 99285; J3490; J2270